=== PATIENT | male | born 1955 | race Caucasian/White ===

== ENCOUNTER → 2017-07-06 | Day surgery (SDC) | payer BC ==
[~2017-07-06] MED LIST: Lactated Ringers 500 ML IV SCH; Propofol 200 MG/20 ML SDV IV ONE
[2017-07-06 12:05] VITALS: BP 124/80
--- NOTE | 2017-07-09 09:01 | OR ---
DATE OF OPERATION: 07/06/2017 PREOPERATIVE DIAGNOSIS: FOLLOWUP POLYPS. POSTOPERATIVE DIAGNOSIS: FOLLOWUP POLYPS. SURGEON: Joe Acuna MD PROCEDURE: FULL-LENGTH COLONOSCOPY WITH SNARE POLYPECTOMY X1. 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 COMPLICATIONS: None. SPECIMEN: Tubular adenoma mid sigmoid colon. FINDINGS: 1. Full-length colonoscopy. 2. Extremely poor bowel prep with poor visualization over half of the colon. 3. Tubular adenoma approximately 0.5 cm mid sigmoid colon. RECOMMENDATIONS: Per ACS guidelines the patient should have no longer than a 5- year followup given his polyp removal. He needs to discuss with his primary MD the possibility of repeating this test as his prep was very poor. INDICATIONS: The patient was in for a physical, was recommended that he have a followup colonoscopy due to polyps which were removed 3 years ago. DESCRIPTION OF PROCEDURE: The patient was prepped and draped, placed in left lateral decubitus position. A lubricated Olympus colonoscope was inserted and the patient had immediate and vast amount of stool in the rectum and all the way through the entire colon was very difficult to pass all the way through. We had to irrigate and suction many times, the scope continued to plug. We were able to get over the right colon and visualize the deep and right lower quadrant. The cecal pouch itself was filled with stool particulate and too heavy to suction. Upon withdrawal, there were skipped areas throughout most of the right and transverse colon. We could visualize the areas of the right and transverse colon, but very poorly. Descending colon appeared to be clear. Most of this patient's stool was in the sigmoid and rectosigmoid junction. There was an area in the mid sigmoid colon at approximately 50 cm. The patient had a stalked tubular adenoma removed in its entirety with a snare and suctioned into polyp trap #1. Much of the distal sigmoid and rectosigmoid area cannot be visualized due to stool. The rectal vault was also poorly visualized due to a significant amount of stool where the retroflexion of the perianal area that was benign. Air was suctioned as best possible. Scope removed without complication. APRIL/SAMINA /[id number]
== END ==
LOC: CC.SDS 09:59
PROVIDERS: ATTEND Family Medicine
DX: Z12.11 Encounter for screening for malignant neoplasm of colon (principal); D12.5 Benign neoplasm of sigmoid colon; E27.1 Primary adrenocortical insufficiency; E78.5 Hyperlipidemia, unspecified; E55.9 Vitamin D deficiency, unspecified; M19.90 Unspecified osteoarthritis, unspecified site; G47.30 Sleep apnea, unspecified; J44.0 Chronic obstructive pulmonary disease with (acute) lower respiratory infection; Z79.899 Other long term (current) drug therapy; Z86.010 Personal history of colon polyps; Z87.891 Personal history of nicotine dependence; N40.0 Benign prostatic hyperplasia without lower urinary tract symptoms; N52.9 Male erectile dysfunction, unspecified
CPT/HCPCS: 45385; J2704; J7120

== ENCOUNTER 2017-10-08 18:39 | Inpatient (IN) | payer BC ==
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
[2017-10-08 19:18] LABS: CHLORIDE,CL 100 mEq/L (98-106); SODIUM,NA 136 mEq/L (136-145)
[2017-10-08] MEDS ORDERED: Sodium Chloride 0.9% 1,000 ML IV ONE (19:39)
[2017-10-08] MEDS ORDERED: Acetaminophen 325 MG Tab PO ONE (19:41)
[2017-10-08] MEDS ORDERED: Ondansetron 4 MG/2 ML SDV IV PRN (20:45)
[2017-10-08] MEDS ORDERED: LORazepam 2 MG/ML Syringe IVPUSH PRN ×2 (20:45→21:47)
[2017-10-08] MEDS ORDERED: Magnesium Hydroxide 400 MG/5 ML Susp 30 ML Cup PO PRN (20:45)
[2017-10-08] MEDS ORDERED: Temazepam 15 MG Cap PO PRN (20:45)
[2017-10-08] MEDS ORDERED: Albuterol 8 GM Inhaler INH PRN (21:34)
[2017-10-08] MEDS ORDERED: Albuterol/Ipratropium 3.0-0.5 MG/3 ML Neb Soln INH PRN (21:34)
[2017-10-08] MEDS: Hydrocortisone 20 MG Tab PO SCH (22:10)
[2017-10-08] MEDS: Formoterol/Mometasone 200-5 MCG 8.8 GM Inhaler IH SCH (22:10)
[2017-10-09] MEDS ORDERED: Azithromycin 500 MG in Sodium Chloride 0.9% 250 ML IV SCH (06:00)
[2017-10-09] MEDS: Aspirin 81 MG Tab.Chew PO SCH (07:44)
[2017-10-09] MEDS: Azithromycin 500 MG in Sodium Chloride 0.9% 250 ML IV SCH (07:45)
[2017-10-09] MEDS ORDERED: Acetaminophen 325 MG Tab PO PRN (08:26)
--- NOTE | 2017-10-09 09:58 | PN ---
DATE: 10/09/2017 S: I had seen him in the clinic yesterday with [id number] bronchiolitis, apparently had a fever seizure, was admitted over night. O: GENERAL: The patient is alert and orientated. VITAL SIGNS: As noted. NECK: Supple. CHEST: End expiratory wheezing. HEART: Cardiac sounds are good. ABDOMEN: Soft. EXTREMITIES: Unremarkable. ASSESSMENT: QUESTION FEBRILE SEIZURE. P: Continue IV antibiotics, MRI of his head today. AUSTEN/SAMINA /[id number]
[2017-10-09] MEDS: Hydrocortisone 20 MG Tab PO SCH ×2 (10:04→20:16)
[2017-10-09] MEDS: Simvastatin 20 MG Tab PO SCH (10:07)
[2017-10-09] MEDS: cefTRIAXone 1 GM Vial IVPUSH SCH (10:10)
[2017-10-09] MEDS: methylPREDNISolone Sodium Succinate 125 MG/2 ML SDV IVPUSH SCH (10:19)
[2017-10-09] MEDS: Tiotropium Inhaler 18 MCG Inhalation Powder Cap Kit of 5 INH SCH (14:26)
[2017-10-09] MEDS: Formoterol/Mometasone 200-5 MCG 8.8 GM Inhaler IH SCH (18:12)
[2017-10-09] MEDS: ADVAIR INH SCH (20:16)
[2017-10-10] MEDS: Azithromycin 500 MG in Sodium Chloride 0.9% 250 ML IV SCH (08:23)
[2017-10-10] MEDS: cefTRIAXone 1 GM Vial IVPUSH SCH (08:24)
[2017-10-10] MEDS: Simvastatin 20 MG Tab PO SCH (08:24)
[2017-10-10] MEDS: methylPREDNISolone Sodium Succinate 125 MG/2 ML SDV IVPUSH SCH (08:25)
[2017-10-10] MEDS: Tiotropium Inhaler 18 MCG Inhalation Powder Cap Kit of 5 INH SCH (08:25)
[2017-10-10] MEDS: ADVAIR INH SCH ×2 (08:25→20:32)
[2017-10-10] MEDS: Hydrocortisone 20 MG Tab PO SCH ×3 (09:44→20:32)
[2017-10-10] MEDS: Aspirin 81 MG Tab.Chew PO SCH (09:45)
--- NOTE | 2017-10-10 10:11 | PN ---
DATE: 10/10/2017 S: Andre Bautista is in with a bronchiolitis, probable febrile seizure. O: NECK: Supple. CHEST: A little bit of wheezing. HEART: Cardiac sounds are good. No evidence of seizures. ASSESSMENT: BRONCHIOLITIS WITH FEBRILE SEIZURE. P: He tells me that he was in a real hot room when he got this fever and that is when this spell happened, so I suspect it was all related to that. AUSTEN/SAMINA /[id number]
[2017-10-11 07:35] VITALS: BP 105/63
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
[2017-10-11] MEDS: Aspirin 81 MG Tab.Chew PO SCH (08:49)
[2017-10-11] MEDS: Hydrocortisone 20 MG Tab PO SCH (08:50)
[2017-10-11] MEDS: methylPREDNISolone Sodium Succinate 125 MG/2 ML SDV IVPUSH SCH (08:51)
[2017-10-11] MEDS: Simvastatin 20 MG Tab PO SCH (08:51)
[2017-10-11] MEDS: cefTRIAXone 1 GM Vial IVPUSH SCH (08:52)
[2017-10-11] MEDS: Tiotropium Inhaler 18 MCG Inhalation Powder Cap Kit of 5 INH SCH (08:54)
[2017-10-11] MEDS: ADVAIR INH SCH (08:55)
[2017-10-11] MEDS: Azithromycin 500 MG in Sodium Chloride 0.9% 250 ML IV SCH (09:05)
== END 2017-10-11 10:54 | disposition home or self-care (01) | DRG 53 ==
LOC: CC.ED 18:39 → UNDOADMOB 19:44 → CC.MS 19:44 → OBSVTOIN 10-09 07:53
PROVIDERS: ADMIT Nurse Practitioner Family; ATTEND General Practice
DX: R56.00 Simple febrile convulsions (principal); J21.9 Acute bronchiolitis, unspecified; E27.1 Primary adrenocortical insufficiency; Z87.891 Personal history of nicotine dependence; Z79.82 Long term (current) use of aspirin; Z79.899 Other long term (current) drug therapy
CPT/HCPCS: 36415; 70450; 70553; 71046; 80053; 82550; 83735; 84443; 85025; 85379; 85651; 86140; 93005; 96361; 96374; 99285; A9270-GY; A9579; G0378; J0456; J0696; J2930; J7030; J7050

== ENCOUNTER → 2018-07-19 | Day surgery (SDC) | payer BC ==
[~2018-07-19] MED LIST changes: +Lactated Ringers 1,000 ML IV SCH; -Lactated Ringers 500 ML IV SCH
[2018-07-19 09:56] VITALS: BP 111/53
--- NOTE | 2018-07-22 09:30 | OR ---
DATE OF OPERATION: 07/19/2018 PREOPERATIVE DIAGNOSIS: HISTORY OF POLYPS. POSTOPERATIVE DIAGNOSIS: HISTORY OF POLYPS. SURGEON: Joe Acuna MD PROCEDURE: FULL-LENGTH COLONOSCOPY WITH FORCEPS POLYP REMOVAL X1. 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 COMPLICATIONS: None. SPECIMEN: Tubular adenoma, hepatic flexure. FINDINGS: 1. Full-length colonoscopy. 2. Tubular adenoma less than 0.5 cm, hepatic flexure. 3. Minimal sigmoid diverticulosis. RECOMMENDATIONS: Followup colonoscopy in 5 years. INDICATIONS: The patient has had a prior history of polyps with colonoscopies. His last colonoscopy was unfortunately with a poor prep. He is in today for a followup for his polyps. DESCRIPTION OF PROCEDURE: The patient was prepped and draped, placed in the left lateral decubitus position. A lubricated Olympus colonoscope was inserted and easily advanced to the cecum. We were able to directly visualize the ileocecal valve, palpate and visualize the light in the right lower quadrant. The bowel prep was adequate. Upon withdrawal of the scope, the cecum and ascending colon appeared benign. Right at the hepatic flexure, the patient had a small tubular adenoma less than 0.5 cm easily removed with a forceps in its entirety. The rest of the transverse and descending colons were completely benign. Throughout the sigmoid area, I could find no further signs of polyp, mass, ulceration, or bleeding sites. No vascular abnormalities or signs of colitis. There were a few minimal diverticula in the most distal portion the sigmoid. The rectal vault appeared benign. Retroflexion of scope in the rectum showed no anal lesions. Air was then suctioned and scope removed without complication. APRIL/SAMINA /[id number] cc: [place] [id number]
== END ==
LOC: CC.SDS 07:32
PROVIDERS: ATTEND Family Medicine
DX: Z12.11 Encounter for screening for malignant neoplasm of colon (principal); D12.3 Benign neoplasm of transverse colon; K57.30 Diverticulosis of large intestine without perforation or abscess without bleeding; J44.9 Chronic obstructive pulmonary disease, unspecified; Z86.010 Personal history of colon polyps; Z87.891 Personal history of nicotine dependence; Z79.82 Long term (current) use of aspirin; Z79.899 Other long term (current) drug therapy
CPT/HCPCS: 45380; J2704